=== PATIENT | male | born 1935 | race Caucasian/White ===

== ENCOUNTER 2016-12-30 05:29 | Inpatient (IN) ==
--- NOTE | 2016-12-27 14:51 | XRay Report ---
XR chest 2V Date: 12/27/2016 1:58 PM History: Respiratory preoperative evaluation Comparison: 11/11/2015 Technique: PA and lateral chest Findings: The heart is normal in size with prior median sternotomy. Arterial calcifications with coronary artery stents. The lungs appear more over expanded with chronic scarring. Calcified granulomata/nodes. Degenerative changes are noted with bridging anterior osteophytes. Prior cholecystectomy. Impression: COPD with chronic scarring in patient with prior median sternotomy. Evidence of old healed granulomatous disease. Diffuse arterial calcifications with coronary artery stents. DISH. PROCEDURE INTERPRETED AT [facility]PARTMENT OF RAD[facility]OLOG[facility] Final Report Signed by: Dr. Alison Lewis
[2016-12-30] MEDS ORDERED: ERTAPENEM 1,000 MG in SODIUM CHLORIDE 0.9% 100 ML IV ONE (06:00)
[2016-12-30] MEDS ORDERED: ALVIMOPAN 12 MG CAPSULE PO ONE (06:00)
[2016-12-30] MEDS ORDERED: SODIUM CHLORIDE 0.9% 100 ML IV ONE (06:01)
[2016-12-30] MEDS ORDERED: ERTAPENEM 1,000 MG VIAL ONE (06:01)
[2016-12-30] MEDS ORDERED: ALVIMOPAN 12 MG CAPSULE ONE (06:02)
--- NOTE | 2016-12-30 06:45 | History and Physical Update ---
History and Physical Update - History and Physical H&P was reviewed, the patient examined and there: are no changes in the patients condition since last H&P was completed. - Dictation Physical: refer to scanned H&P
[2016-12-30] MEDS: LACTATED RINGERS 1,000 ML IV SCH ×3 (06:55→12:11)
[2016-12-30] MEDS ORDERED: TISSUE ADHESIVE 1 EACH APPLICATOR TOP ONE (09:58)
--- NOTE | 2016-12-30 10:38 | Anesthesia Post-Op ---
Anesthesia Post OP - Post Ansesthetic Evaluation Patient seen in post op: Yes Resp: within normal limits CV: within normal limits Mental: within normal limits Temp: within normal limits [id number]: within normal limits Nausea and Vomiting: within normal limits Pain: within normal limits
[2016-12-30] MEDS ORDERED: ONDANSETRON 4 MG/2 ML VIAL IV PRN ×2 (10:39→10:44)
[2016-12-30] MEDS ORDERED: PROMETHAZINE 25 MG/1 ML VIAL IM PRN (10:39)
[2016-12-30] MEDS ORDERED: HYDROmorphone 2 MG/1 ML VIAL IV PRN ×2 (10:39→10:44)
[2016-12-30] MEDS ORDERED: ALBUTEROL/IPRATROPIUM 3 ML NEB RESP TX PRN (10:39)
[2016-12-30] MEDS ORDERED: ACETAMINOPHEN 325 MG TABLET PO PRN (10:39)
[2016-12-30] MEDS ORDERED: PROPOFOL 200 MG/20 ML VIAL IV ONE (10:40)
[2016-12-30] MEDS ORDERED: MIDAZOLAM 2 MG/2 ML VIAL ONE (10:40)
[2016-12-30] MEDS ORDERED: DESFLURANE 1 UNIT/15 MINUTE INH ONE (10:40)
[2016-12-30] MEDS ORDERED: NEOSTIGMINE 10 MG/10 ML VIAL ONE (10:41)
[2016-12-30] MEDS ORDERED: ROCURONIUM 100 MG/10 ML VIAL IV ONE (10:41)
[2016-12-30] MEDS ORDERED: ACETAMINOPHEN 1,000 MG/100 ML VIAL IV ONE (10:41)
[2016-12-30] MEDS ORDERED: LACTATED RINGERS 1,000 ML IV ONE (10:41)
[2016-12-30] MEDS ORDERED: fentaNYL 100 MCG/2 ML VIAL ONE (10:41)
[2016-12-30] MEDS ORDERED: ONDANSETRON 4 MG/2 ML VIAL ONE ×2 (10:41→11:02)
[2016-12-30] MEDS ORDERED: NITROGLYCERIN SL 0.4 MG TABLET SL PRN (10:43)
[2016-12-30] MEDS ORDERED: ALLOPURINOL 100 MG TABLET PO PRN (10:43)
[2016-12-30] MEDS ORDERED: DEXTROSE 50% 25 GM/50 ML SYRINGE IV PRN (10:44)
[2016-12-30] MEDS ORDERED: GLUCAGON 1 MG VIAL IM PRN (10:44)
[2016-12-30] MEDS ORDERED: HYDROmorphone 2 MG/1 ML VIAL ONE (11:02)
[2016-12-30] MEDS: PANTOPRAZOLE 40 MG VIAL IV SCH (12:10)
[2016-12-30] MEDS: KETOROLAC 15 MG/1 ML VIAL IV SCH ×2 (12:10→17:15)
[2016-12-30] MEDS: ASPIRIN EC 81 MG TABLET PO SCH (12:11)
[2016-12-30] MEDS: DUTASTERIDE 0.5 MG CAPSULE PO SCH (12:11)
[2016-12-30] MEDS: amLODIPine 5 MG TABLET PO SCH (12:12)
[2016-12-30] MEDS: METOPROLOL TARTRATE 50 MG TABLET PO SCH (12:12)
[2016-12-30] MEDS: INDAPAMIDE 2.5 MG TABLET PO SCH (12:12)
[2016-12-30] MEDS: ALVIMOPAN 12 MG CAPSULE PO SCH ×2 (12:27→21:24)
--- NOTE | 2016-12-30 13:17 | Operative Note ---
Date of procedure: 12/30/16 Pre-op diagnosis: Right colon cancer Post-op diagnosis: same Procedure: Preoperative diagnosis Ascending colon cancer Postoperative diagnosis Same Procedures performed 1. Robotic assisted extensive laparoscopic lysis of adhesions 2. Robotic assisted laparoscopic right colectomy Complications None apparent Specimen Right colon Findings There were extensive intra-abdominal adhesions to the patient's prior midline incision. I spent approximately an hour and 15 minutes taking these down to expose the area of interest and restore normal anatomy for the planned right colectomy. There was a serosal cautery injury to a small piece of jejunum and this was oversewn with 3-0 silk Lembert sutures. There was no evidence of metastatic disease to the liver. Blood loss 10 mL Anesthesia GETA Indications Ascending colon cancer Description of procedure The patient was taken to the operating room and transferred to the operating table in supine position. Pressure points were padded and SCDs were placed lower extremities. General endotracheal anesthesia was administered. A Quach catheter was placed with clear urine output. The patient was prepped and draped with chlorhexidine. Preoperative antibiotics were administered and a timeout was performed. The abdomen was entered in a supraumbilical paramedian location on the left side of the abdominal wall with a Veress needle. An 8 mm skin incision was made with an 11 blade scalpel and penetrating towel clips were used to grasp the abdominal wall skin Veress needle was used to enter the peritoneal cavity confirmed by double click technique. Aspiration was negative. Saline drop test confirmed intraperitoneal location. The Veress needle was used to insufflate the abdominal cavity to 15 mmHg with an initial pressure of 2 mmHg. The Veress needle was removed and a robotic 8 mm trocar was placed blindly. Laparoscope was inserted. There is no evidence of Veress needle or trocar injury. Diagnostic laparoscopy was performed. There were a lot of adhesions to the midline which mostly contained omentum but also transverse colon and some small bowel. These extended the entire length of the prior midline incision and also off into the left upper quadrant some. The 12 mm left upper quadrant abdominal trochars placed under direct visualization after local anesthetic was administered and the 5 mm kennel assistant trocar was placed in the left lower quadrant. The 8 mm left lower quadrant trocar was then placed. A laparoscopic lysis of adhesions was performed which took about an hour and 15 minutes and fairly extensive adhesio lysis was required. This was necessary to adequately see the area of dissection and also to restore the normal anatomy to allow removal of the patient's colon cancer in the right colon. A superficial cautery injury occurred on the jejunum and this was oversewn with 3-0 silk Lembert sutures. The robot was docked. The cecum was retracted and the ileocolic pedicle was identified and divided with a vascular stapler. Medial to lateral dissection was performed with visualization of the duodenum and the dissection was then carried up towards the transverse colon. The colon was transected after the omentum was taken off the colon with electrocautery using a JENNIFER stapler. The lateral attachments of the colon were then divided down to the pelvis. The terminal ileum was transected also with a JENNIFER stapler. An intracorporeal anastomosis was completed by making an enterotomy and colotomy in the GI stapler was used to staple the anastomosis side to side. The enterotomy was closed with the JENNIFER stapler. The mesentery was inspected and was not twisted. The mesenteric defect was left open. The robot was undocked. The specimen was extracted through a left upper quadrant incision extended from the 12 mm trocar site through an Angel retractor. The fascial incision was closed with a 0 non-looped PDS suture in 2 layers. The skin incisions were closed with 4-0 monocryl sutures. The patient's Quach was removed and she was awakened from anesthesia and transferred to recovery. Postoperative plan Advance diet as tolerated Pain control Anesthesia: MIKAELAA Surgeon / Physician: Zachery Juárez Estimated blood loss: minimal Specimens: other (right colon) Condition: stable Disposition: PACU Discharge Plan - Discharge Medications No Action Omeprazole 20 mg PO BIDAC Metoprolol Tartrate 50 mg PO DAILY Indapamide 2.5 mg PO DAILY glipiZIDE [Glipizide] 10 mg PO TID Dutasteride [Avodart] 0.5 mg PO DAILY Atorvastatin [Lipitor] 40 mg PO BEDTIME amLODIPine [Norvasc] 5 mg PO DAILY Aspirin [Ecotrin] 81 mg PO DAILY Pioglitazone HCl [Actos] 30 mg PO DAILY Cyanocobalamin Inj [Vitamin B12 Inj] 1,000 mcg SUBCUT Q30D Acetaminophen Tab [Tylenol Tab] 650 mg PO Q6H PRN #0 tablet PRN Reason: Fever > 100.4 Or Headache Allopurinol 100 mg PO DIRECTED PRN PRN Reason: Gout - Follow Up or Referral - Forms/Instructions
--- NOTE | 2016-12-30 15:53 | Event Note ---
General Surgery Progress Note Chief complaint This patient is a 81-year-old man admitted following robotic assisted laparoscopic extensive lysis of adhesions with right colectomy for right colon cancer on 12/30/2016 Interval history The patient is doing well postoperatively. His pain is well controlled. No nausea or vomiting. Vital signs are normal. Physical exam Afebrile with normal vital signs Chest is clear Heart is regular Abdomen soft and appropriately tender Extremities with no edema Labs None new Imaging None new Assessment and plan The patient is comfortable postoperatively. We will continue Entereg and await return of bowel function with diet as tolerated Incentive spirometry DVT chemoprophylaxis with Lovenox [place], Dilaudid, and Toradol for pain Ambulate in [place]
[2016-12-30] MEDS: INSULIN LISPRO 100 UNIT/ML SUBCUT SCH (17:16)
[2016-12-30] MEDS: ATORVASTATIN 40 MG TABLET PO SCH (21:25)
[2016-12-31] MEDS: KETOROLAC 15 MG/1 ML VIAL IV SCH ×4 (02:36→17:30)
[2016-12-31] MEDS: LACTATED RINGERS 1,000 ML IV SCH ×4 (02:37→16:43)
[2016-12-31 05:31] LABS: Basophils % 0.1 % (0.0-0.8); Hematocrit 29.9 VOL% (42.0-52.0); Immature Granulocytes % 1.1 %; Lymphocytes # 0.4 10*3/uL (1.4-4.0); Lymphocytes % 3.8 % (21.2-54.2); Mean Corpuscular HGB Conc 33.4 GM/DL (32-36); Mean Corpuscular Hemoglobin 28 PG (27-34); Mean Corpuscular Volume 84.2 FL (87-102); Mean Platelet Volume 11.5 FL (9.6-12.0); Monocytes # 0.5 10*3/uL (0.11-0.8); Monocytes % 5.3 % (1.7-12.7); Neutrophils # 8.5 10*3/uL (1.4-7.4); Neutrophils % 89.7 % (38.7-73.9); Red Blood Count 3.55 MC/CUMM (3.8-5.5); Red Cell Distribution Width 14.4 % (9.3-17.3); White Blood Count 9.5 T/CUMM (4-12)
[2016-12-31 05:56] LABS: Platelet Count 84 T/CUMM (130-400)
[2016-12-31 06:06] LABS: Calcium 8.5 MG/DL (8.5-10.1); Osmolality,Calculated 288.1 MOS/KG (273-304); Potassium 3.7 MMOL/L (3.5-5.1)
[2016-12-31 07:14] LABS: Band Neutrophils 19 % (0-10); Hypochromasia Slight; Platelet Estimate Decreased; Segmented Neutrophils 81 % (50-85); Target Cells Slight; Total Cells Counted 100
[2016-12-31] MEDS ORDERED: LACTATED RINGERS 1,000 ML IV ONE (07:14)
[2016-12-31 07:42] LABS: Apearance,Urine CLOUDY (Clear); Bilirubin,Urine Negative (Negative); Blood, Urine Large mg/dL (Negative); Glucose,Urine (UA) Negative (Negative); Hyaline Casts,Urine 17 /LPF (0-3); Ketones,Urine Negative (Negative); Mucus,Urine Many /LPF (Occasional); Nitrite,Urine Negative (Negative); Protein,Urine 100 MG/DL; RBC,Urine 1367 /HPF (0-4); Urine Color Amber (Yellow); Urine Specific Gravity 1.023 (1.001-1.035); Urine Urobilinogen < 2.0 EU/DL (0.2-1.0); WBC,Urine 49 /HPF (0-6)
[2016-12-31] MEDS: ALVIMOPAN 12 MG CAPSULE PO SCH ×2 (09:24→20:44)
[2016-12-31] MEDS: PANTOPRAZOLE 40 MG VIAL IV SCH (09:24)
[2016-12-31] MEDS: DUTASTERIDE 0.5 MG CAPSULE PO SCH (09:25)
[2016-12-31] MEDS: METOPROLOL TARTRATE 50 MG TABLET PO SCH (09:25)
[2016-12-31] MEDS: INDAPAMIDE 2.5 MG TABLET PO SCH (09:25)
[2016-12-31] MEDS: ASPIRIN EC 81 MG TABLET PO SCH (09:25)
[2016-12-31] MEDS: amLODIPine 5 MG TABLET PO SCH (09:25)
[2016-12-31] MEDS: INSULIN LISPRO 100 UNIT/ML SUBCUT SCH ×2 (09:58→17:10)
--- NOTE | 2016-12-31 11:33 | Event Note ---
General Surgery Progress Note Chief complaint This patient is a 81-year-old man admitted following robotic assisted laparoscopic extensive lysis of adhesions with right colectomy for right colon cancer on 12/30/2016 Interval history The patient is doing well overall and his pain is well controlled. He did develop some hematuria overnight as possible urinary tract infection on his UA. His heart rate is normalized and he is receiving IV fluid bolus now for decreased urine output and elevated creatinine. His hemoglobin is 1012 preop. He does have some thrombocytopenia at 80,000 Physical exam Afebrile with normal vital signs Chest is clear Heart is regular Abdomen soft and appropriately tender, the incisions are clean, dry, and intact Extremities with no edema Labs Reviewed, as above Imaging None new Assessment and plan We will add the IV fluid bolus this morning Continue to monitor urine hematuria and follow-up urinalysis urine cultures. The patient likely had irritation of his prostate on Quach catheter placement. We will monitor this over the next day or 2 and see if it clears up on its own. Repeat labs tomorrow Hold off on DVT chemoprophylaxis due to hematuria and low platelet count. Continue SCDs and incentive spirometry and ambulation in the minor
--- NOTE | 2016-12-31 16:26 | Urology Consultation ---
Assessment and Plan - Time spent with patient Time spent with patient: Greater than 30 minutes (1) Hematuria Status: Acute Assessment and plan: He is clearing I recommend observation I will decrease his IV fluids. He did have an elevated residual but he seems to be voiding well and comfortable I think this will improve with time he is to continue his Avodart. I think he probably go home tomorrow. Current Visit: Yes Qualifiers: Qualified Code(s): R31.0 - Gross hematuria History of Present Illness - Data of Consult Patient: known to practice within the last 3 years Consult date: 12/31/16 Requesting Physician: Zachery Juárez - Consult Narrative Reason for consult: Hematuria History of present illness: Mr. Feldman is a 81 year old male who is well known to me. Had a renal cell that we cryoablated years ago. He does have BPH she is on Avodart. He has had hematuria in the past. He is now status post colectomy for colon cancer is had hematuria. His urine is clearing. He is on a baby aspirin and has Toradol. But in seeing him now his urine is fairly clear. They did an ultrasound of the bladder shows 300 cc. I think this is all situational I think this should clear up. I think he could probably go home tomorrow we will watch him tonight he is to continue his Avodart. I do think we need to decrease his IV fluids and will change that 75 cc an hour. CC: Zachery Juárez MD - Home Medications and Allergies Home Medications: Home Medications Medication Instructions Recorded Confirmed Type Aspirin [Ecotrin] 81 mg PO DAILY 11/19/14 12/30/16 History Atorvastatin [Lipitor] 40 mg PO BEDTIME 11/19/14 12/30/16 History Cyanocobalamin Inj [Vitamin B12 1,000 mcg SUBCUT Q30D 11/19/14 12/30/16 History Inj] Dutasteride [Avodart] 0.5 mg PO DAILY 11/19/14 12/30/16 History Indapamide 2.5 mg PO DAILY 11/19/14 12/30/16 History Metoprolol Tartrate 50 mg PO DAILY 11/19/14 12/30/16 History Omeprazole 20 mg PO BIDAC 11/19/14 12/30/16 History Pioglitazone HCl [Actos] 30 mg PO DAILY 11/19/14 12/30/16 History amLODIPine [Norvasc] 5 mg PO DAILY 11/19/14 12/30/16 History glipiZIDE [Glipizide] 10 mg PO TID 11/19/14 12/30/16 History Acetaminophen Tab [Tylenol Tab] 650 mg PO Q6H PRN #0 tablet 11/14/15 12/30/16 Rx Allopurinol 100 mg PO DIRECTED PRN 11/17/16 12/30/16 History Allergies/Adverse Reactions: Allergies Allergy/AdvReac Type Severity Reaction Status Date / Time Iodinated Contrast Media - Allergy Intermediate ITCHING Verified 12/30/16 06:23 Oral and - Genitourinary Genitourinary: Absent: difficulty urinating, dysuria, flank pain, nocturia, scrotal swelling, testicular mass, testicular pain, urinary frequency, urinary incontinence Exam - Constitutional Vitals: Period Temp Pulse Resp BP Sys/Bonner Pulse Ox Last 24 Hr 98.0 F-98.8 F 91-106 18-26 110-117/58-61 91-96 Results - Labs CBC & BMP: 12/31/16 05:11 12/31/16 05:11
[2016-12-31] MEDS: ATORVASTATIN 40 MG TABLET PO SCH (20:44)
[2017-01-01] MEDS: KETOROLAC 15 MG/1 ML VIAL IV SCH ×3 (00:25→12:29)
[2017-01-01 03:33] LABS: Basophils % 0.2 % (0.0-0.8); Eosinophils # 0.1 10*3/uL (0.0-0.87); Eosinophils % 1.1 % (0.00-10.9); Hematocrit 26.9 VOL% (42.0-52.0); Hemoglobin 8.9 GM/DL (14.0-18.0); Immature Granulocytes % 0.8 %; Immature Granulocytes Absolute 0.05 #; Lymphocytes # 0.5 10*3/uL (1.4-4.0); Lymphocytes % 8.3 % (21.2-54.2); Mean Corpuscular HGB Conc 33.1 GM/DL (32-36); Mean Corpuscular Hemoglobin 28 PG (27-34); Mean Corpuscular Volume 85.9 FL (87-102); Mean Platelet Volume 12.1 FL (9.6-12.0); Monocytes # 0.4 10*3/uL (0.11-0.8); Monocytes % 5.4 % (1.7-12.7); Neutrophils # 5.5 10*3/uL (1.4-7.4); Neutrophils % 84.2 % (38.7-73.9); Platelet Count 73 T/CUMM (130-400); Red Blood Count 3.13 MC/CUMM (3.8-5.5); Red Cell Distribution Width 14.9 % (9.3-17.3); White Blood Count 6.5 T/CUMM (4-12)
[2017-01-01 03:47] LABS: Magnesium 1.9 MG/DL (1.8-2.4); Osmolality,Calculated 283.5 MOS/KG (273-304); Potassium 3.3 MMOL/L (3.5-5.1)
[2017-01-01 04:57] LABS: Anisocytosis Slight; Band Neutrophils 5 % (0-10); Eosinophils 1 % (0-10); Lymphocytes 11 % (20-55); Macrocytosis Slight; Platelet Estimate Decreased; Segmented Neutrophils 79 % (50-85); Total Cells Counted 100
[2017-01-01 04:58] LABS: Polychromasia 2+
[2017-01-01] MEDS: LACTATED RINGERS 1,000 ML IV SCH (05:23)
[2017-01-01] MEDS: PANTOPRAZOLE 40 MG VIAL IV SCH (09:37)
[2017-01-01] MEDS: ASPIRIN EC 81 MG TABLET PO SCH (09:38)
[2017-01-01] MEDS: DUTASTERIDE 0.5 MG CAPSULE PO SCH (09:38)
[2017-01-01] MEDS: amLODIPine 5 MG TABLET PO SCH (09:38)
[2017-01-01] MEDS: INDAPAMIDE 2.5 MG TABLET PO SCH (09:38)
[2017-01-01] MEDS: INSULIN LISPRO 100 UNIT/ML SUBCUT SCH (09:39)
[2017-01-01] MEDS: METOPROLOL TARTRATE 50 MG TABLET PO SCH (09:50)
[2017-01-01] MEDS: ALVIMOPAN 12 MG CAPSULE PO SCH (09:50)
--- NOTE | 2017-01-01 11:34 | Event Note ---
01/01/2017 Patient seems to be afebrile with a little warm from what I can tell. He states he has had some bowel movements his abdomen is mildly distended there is a fullness in the left side of the abdomen at this time that I cannot tell much about. He seems to tolerate his diet and Dr. Conley is clear to inform his urine standpoint. A little bit concerned because he does feel warm and hot would like to keep him another day before let him go home.
--- NOTE | 2017-01-01 11:53 | Urology Progress Note ---
Assessment and Plan (1) Hematuria Status: Acute Assessment and plan: He is clearing I recommend observation I will decrease his IV fluids. He did have an elevated residual but he seems to be voiding well and comfortable I think this will improve with time he is to continue his Avodart. I think he probably go home tomorrow. Current Visit: Yes Qualifiers: Qualified Code(s): R31.0 - Gross hematuria Urology - PN: Subj Interval history: Mr. Feldman is voiding better. His urine has cleared up. We have continue the Avodart which is a home medicine. As far as I am concerned he can go home. He has an appointment see me on 19 January we will see him then. Signing off. Exam - Constitutional Vitals: Period Temp Pulse Resp BP Sys/Bonner Pulse Ox Last 24 Hr 97.5 F-98.8 F 70-91 18-26 110-155/60-84 88-98 Results - Labs CBC & BMP: 01/01/17 02:46 01/01/17 02:46
[2017-01-01 12:40] VITALS: BP 139/65
--- NOTE | 2017-01-01 13:50 | Discharge Summary ---
Hospital Course - Hospital Course Hospital Course: This patient was admitted following robotic assisted laparoscopic lysis of adhesions with right colectomy for colon cancer. He developed hematuria and urinary retention postop and he was seen by his urologist who recommended observation and tincture of time and the patient did improve with this. He was cleared for discharge home by his urologist and he stabilized in the hospital. His hemoglobin drifted down to 9 g/dL but he was not tachycardic and had normal blood pressure. There was no evidence of bleeding. He was discharged home with follow-up with me a week from this coming Tuesday. He was tolerating a diet but no abdominal pain and was having bowel movements prior to discharge. Discharge Plan - Discharge Data Disposition: Disch To Home/Self Care Condition at Discharge: Stable Discharge Diet: advance to your usual diet Activity: no lifting Hygiene: may shower Weight Bearing at Discharge: weight bear as tolerated Driving: other (Do not drive or operate heavy machinery for at least 24 hours and after you are off of narcotic pain medications.) Contact your physician if you experience:: fever over 101, Difficulty voiding, Redness or swelling, Nausea/Vomiting, Shortness of breath, Bleeding, pain uncontrolled by pain medications Wound / Dressing Care Instructions: It is okay to shower. Do not scrub the incision aggressively or submerge it under water. - Discharge Medications New HYDROcodone/ACETAMIN 7.5-325 [[place] 7.5-325] 1 tablet PO Q4H PRN #30 tablet PRN Reason: Pain Moderate (4-7) Continue Omeprazole 20 mg PO BIDAC Metoprolol Tartrate 50 mg PO DAILY Indapamide 2.5 mg PO DAILY glipiZIDE [Glipizide] 10 mg PO TID Dutasteride [Avodart] 0.5 mg PO DAILY Atorvastatin [Lipitor] 40 mg PO BEDTIME amLODIPine [Norvasc] 5 mg PO DAILY Aspirin [Ecotrin] 81 mg PO DAILY Pioglitazone HCl [Actos] 30 mg PO DAILY Cyanocobalamin Inj [Vitamin B12 Inj] 1,000 mcg SUBCUT Q30D Allopurinol 100 mg PO DIRECTED PRN PRN Reason: Gout Discontinued Acetaminophen Tab [Tylenol Tab] 650 mg PO Q6H PRN #0 tablet PRN Reason: Fever > 100.4 Or Headache - Follow Up or Referral Follow Up: Zachery Juárez MD [Physician] - 01/10/17 - Forms/Instructions Exam - Constitutional Vitals: Period Temp Pulse Resp BP Sys/Bonner Pulse Ox Last 24 Hr 97.5 F-98.3 F 70-92 18-22 112-155/60-84 88-98 General appearance: no acute distress, over weight - Head Head exam: Present: normal inspection, normocephalic - Eye Eye exam: Present: EOMI. Absent: conjunctival injection Pupils: Present: SHEFALI, normal accommodation - ENT ENT exam: Present: normal exam - Neck Neck exam: Present: normal inspection - Respiratory Respiratory exam: Present: clear to auscultation bilaterally. Absent: accessory muscle use, chest wall tenderness - Cardiovascular Cardiovascular exam: Present: regular rate and rhythm. Absent: systolic murmur , tachycardia - GI/Abdominal GI/Abdominal exam: Present: normal bowel sounds, tenderness (Expected postoperative tenderness), soft, other (There is some bruising of the abdominal incisions with a small hematoma at the periumbilical trocar but no overlying skin erythema or warmth. There is no deep tenderness on exam. Bowel sounds are normal.). Absent: rebound - Extremities Exam Extremities exam: Present: normal inspection, normal capillary refill - Back Exam Back exam: Present: normal inspection - Neurological Exam Neurological exam: Present: alert, oriented X3 - Psychiatric Psychiatric exam: Present: normal affect, normal mood - Skin Skin exam: Present: normal color, warm Discharge Results Procedures and tests throughout hospitalization: Pending Orders 12/31/16 Urine Culture Routine 01/02/17 04:00 Basic Metabolic Panel w/Mg IN AM Comp Blood Count Auto Diff IN AM Labs on day of discharge: Labs from last 24 hours 01/01/17 01/01/17 01/01/17 11:19 08:06 02:46 WBC RBC Hgb Hct MCV MCH MCHC RDW Plt Count MPV Neut % (Auto) Lymph % (Auto) [place] % (Auto) Eos % (Auto) Baso % (Auto) Neut # (Auto) Lymph # (Auto) [place] # (Auto) Eos # (Auto) Baso # (Auto) Total Counted Immature Gran % Nucleated RBC % Immature Gran # Segmented Neutrophils Band Neutrophils Lymphocytes Monocytes Eosinophils Nucleated RBCs # Platelet Estimate Immature Plt Fraction Polychromasia Anisocytosis Macrocytosis Sodium 139 Potassium 3.3 L Chloride 105 Carbon Dioxide 28 Anion Gap 9.3 BUN 36 H Creatinine 1.40 H GFR Calculation 58 BUN/Creatinine Ratio 25.00 H Glucose 74 POC Glucose 105 82 Calculated Osmolality 283.5 Calcium 8.0 L Magnesium 1.9 01/01/17 12/31/16 12/31/16 02:46 19:32 15:28 WBC 6.5 D RBC 3.13 L Hgb 8.9 L Hct 26.9 L MCV 85.9 L MCH 28 MCHC 33.1 RDW 14.9 Plt Count 73 L MPV 12.1 H Neut % (Auto) 84.2 H Lymph % (Auto) 8.3 L Republic % (Auto) 5.4 Eos % (Auto) 1.1 Baso % (Auto) 0.2 Neut # (Auto) 5.5 Lymph # (Auto) 0.5 L [place] # (Auto) 0.4 Eos # (Auto) 0.1 Baso # (Auto) 0.0 Total Counted 100 Immature Gran % 0.8 Nucleated RBC % 0.0 Immature Gran # 0.05 Segmented Neutrophils 79 Band Neutrophils 5 Lymphocytes 11 L Monocytes 4 Eosinophils 1 Nucleated RBCs # 0.00 Platelet Estimate Decreased Immature Plt Fraction 4.3 Polychromasia 2+ Anisocytosis Slight Macrocytosis Slight Sodium Potassium Chloride Carbon Dioxide Anion Gap BUN Creatinine GFR Calculation BUN/Creatinine Ratio Glucose POC Glucose 85 89 Calculated Osmolality Calcium Magnesium 12/31/16 13:53 WBC RBC Hgb Hct MCV MCH MCHC RDW Plt Count MPV Neut % (Auto) Lymph % (Auto) Republic % (Auto) Eos % (Auto) Baso % (Auto) Neut # (Auto) Lymph # (Auto) [place] # (Auto) Eos # (Auto) Baso # (Auto) Total Counted Immature Gran % Nucleated RBC % Immature Gran # Segmented Neutrophils Band Neutrophils Lymphocytes Monocytes Eosinophils Nucleated RBCs # Platelet Estimate Immature Plt Fraction Polychromasia Anisocytosis Macrocytosis Sodium Potassium Chloride Carbon Dioxide Anion Gap BUN Creatinine GFR Calculation BUN/Creatinine Ratio Glucose POC Glucose 150 H Calculated Osmolality Calcium Magnesium Preliminary micro results at discharge 12/31/16 Unknown Urine Culture - Preliminary Urine,Clean Catch No Growth at 24 hours. DS: Provider Date of admission: 12/30/16 10:39 Primary care physician: Gerson Fuller DO Attending physician on admission: Zachery Juárez MD Consults: 12/31/16 14:05 Consult to Physician [CONS] Routine Comment: hematuria, urinary retention Consulting Provider: Vinicio Conley Person Notified: Dr. Conley Date Notified: 12/31/16 Time Notified: 14:17 Consult Notification Comment: Dr. Juárez spoke to Dr. Conley on rounds. Dr. Conley aware Discharging clinician: Zachery Juárez MD Expected date of discharge: 01/01/17
[2017-01-01 14:10] LABS: Hematocrit 28.9 VOL% (42.0-52.0); Hemoglobin 9.7 GM/DL (14.0-18.0)
[2017-01-01] MEDS ORDERED: POTASSIUM CHLORIDE 20 MEQ TABLET PO ONE (14:45)
--- NOTE | 2017-01-03 13:25 | Pathology Report from [facility] ---
[facility] [place] ACCESSION # : [id number] PATIENT NAME : Lenora Dai ORDERING DR : Zachery Juárez MD CLINICAL HX: Colon cancer POST-OP DX: Same SPECIMEN INFO: Right colon GROSS DESCRIPTION: The specimen is received in formalin labeled with the patients name LENORA DAI and consists of a segment of colon to include the cecum measuring 49.0 cm in length and measuring from 2.0 cm to 7.0 cm in diameter. The terminal ileum measures 10.0 x 1.7 cm. The appendix measures 7.0 x 0.7 cm. The serosa has an irregular mendosa-pink color. The bile wall displays areas of thinning. A ulcerated tumor mass measuring 3.2 x 1.7 cm is noted 18.0 cm from the proximal margin and 34.0 cm from the distal margin. Grossly the tumor extends beyond the bowel to the adjacent mesentery, and comes to within 6.0 cm from the mesenteric margin. A sessile polyp measuring 1.4 x 0.8 cm is noted 3.5 cm proximal to the mass. Sections submitted: A proximal margin, B distal margin, C mesenteric margin, D thru F mass, G smaller polyp, H appendix, I development representative thin bowel wall, and J-K lymph nodes. DIAGNOSIS FOR LENORA DAI: #1 RIGHT COLON, PARTIAL ILEOCOLECTOMY (Intact, 59.0 x 7.0 cm): TYPE: Invasive adenocarcinoma. TUMOR SITE: Ascending colon. TUMOR SIZE: 3.2 x 1.7 cm. MACROSCOPIC TUMOR PERFORATION: Present. HISTOLOGIC GRADE: Moderately differentiated. TUMOR EXTENSION: Invades lamina propria through the muscularic propria into the pericolic fat without serosal involvement. MARGINS, PROXIMAL: Uninvolved by carcinoma, distance = 18 cm. DISTAL: Uninvolved by carcinoma, distance = 34 cm. MESENTERIC: Uninvolved by carcinoma, distance = 6 cm. TREATMENT EFFECT : No prior treatment. LYMPHOVASCULAR INVASION: Not identified. PERINEURAL INVASION: Not identified. TUMOR DEPOSITS: Not identified. TUMOR BUDDING: Number of tumor buds in 1 hotspot field = Low score (0-4). LYMPH NODES: NUMBER EXAMINED: 22; NUMBER INVOLVED: 1 (06/13). 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 COLLECTED DATE: 12/30/2016 [facility] [place] REPORT DATE: 01/03/2017 ELECTRONICALLY SIGNED BY: Kadeem Ryan M.D. 01/03/2017 - 9:34:55 MTDD
== END 2017-01-01 14:58 | disposition home or self-care (01) | DRG 330 ==
LOC: N.OR 05:29 → N.SDSINP 05:29 → N.2E 10:39
PROVIDERS: ADMIT Surgery; ATTEND Surgery

== ENCOUNTER 2019-07-03 14:43 | Observation (INO) ==
[2019-07-03] MEDS ORDERED: DEXTROSE 10% 250 ML BAG IV PRN (15:09)
[2019-07-03] MEDS ORDERED: ONDANSETRON 4 MG/2 ML VIAL IV PRN (15:09)
[2019-07-03] MEDS ORDERED: ACETAMINOPHEN 325 MG TABLET PO PRN (15:09)
[2019-07-03] MEDS ORDERED: GLUCAGON 1 MG VIAL IM PRN (15:09)
[2019-07-03] MEDS: INSULIN REGULAR 100 UNIT/ML SUBCUT SCH ×2 (18:09→21:10)
[2019-07-03] MEDS: methylPREDNISolone SOD SUC 40 MG/1 ML VIAL IV SCH (18:10)
[2019-07-03] MEDS: SODIUM CHLORIDE 0.9% 1,000 ML IV SCH (18:10)
[2019-07-03] MEDS ORDERED: ENOXAPARIN 30 MG/0.3 ML SYRINGE SUBCUT SCH (21:00)
[2019-07-03] MEDS: KETOROLAC 30 MG/1 ML VIAL IV SCH (21:10)
[2019-07-03] MEDS: DOCUSATE SODIUM 100 MG CAPSULE PO SCH (21:40)
[2019-07-03] MEDS: ATORVASTATIN 40 MG TABLET PO SCH (21:40)
[2019-07-04] MEDS: methylPREDNISolone SOD SUC 40 MG/1 ML VIAL IV SCH ×3 (00:24→16:37)
[2019-07-04 05:04] LABS: Basophils % 0.2 % (0.0-0.8); Hematocrit 34.9 VOL% (42.0-52.0); Hemoglobin 11.8 GM/DL (14.0-18.0); Immature Granulocytes % 0.5 %; Immature Granulocytes Absolute 0.03 #; Lymphocytes # 0.4 10*3/uL (1.4-4.0); Lymphocytes % 7.2 % (21.2-54.2); Mean Corpuscular HGB Conc 33.8 GM/DL (32-36); Mean Corpuscular Volume 84.5 FL (87-102); Mean Platelet Volume 11.1 FL (9.6-12.0); Monocytes % 3.4 % (1.7-12.7); Neutrophils % 88.7 % (38.7-73.9); Platelet Count 151 T/CUMM (130-400); Red Blood Count 4.13 MC/CUMM (3.8-5.5); Red Cell Distribution Width 13.2 % (9.3-17.3); White Blood Count 6.1 T/CUMM (4-12)
[2019-07-04 05:26] LABS: Calcium 8.9 MG/DL (8.5-10.1); Osmolality,Calculated 273.8 MOS/KG (273-304)
[2019-07-04] MEDS: DOCUSATE SODIUM 100 MG CAPSULE PO SCH ×2 (08:36→21:28)
[2019-07-04] MEDS: glipiZIDE 10 MG TABLET PO SCH ×2 (08:36→16:37)
[2019-07-04] MEDS: METOPROLOL TARTRATE 50 MG TABLET PO SCH (08:37)
[2019-07-04] MEDS: ASPIRIN EC 81 MG TABLET PO SCH (08:37)
[2019-07-04] MEDS: amLODIPine 5 MG TABLET PO SCH (08:37)
[2019-07-04] MEDS: PANTOPRAZOLE 40 MG TABLET PO SCH (08:37)
[2019-07-04] MEDS: metFORMIN 500 MG TABLET PO SCH ×2 (08:37→16:37)
[2019-07-04] MEDS: DUTASTERIDE 0.5 MG CAPSULE PO SCH (08:37)
[2019-07-04] MEDS: KETOROLAC 30 MG/1 ML VIAL IV SCH ×2 (08:38→22:25)
[2019-07-04] MEDS: PIOGLITAZONE 15 MG TABLET PO SCH (08:40)
[2019-07-04] MEDS: SODIUM CHLORIDE 0.9% 1,000 ML IV SCH ×2 (08:45→21:35)
[2019-07-04] MEDS ORDERED: PIOGLITAZONE 15 MG TABLET PO SCH (09:00)
[2019-07-04] MEDS ORDERED: POTASSIUM CHLORIDE 20 MEQ TABLET PO ONE (09:00)
[2019-07-04] MEDS: INSULIN REGULAR 100 UNIT/ML SUBCUT SCH ×4 (11:42→21:29)
[2019-07-04] MEDS ORDERED: ENOXAPARIN 40 MG/0.4 ML SYRINGE SUBCUT SCH (21:00)
[2019-07-04] MEDS: ATORVASTATIN 40 MG TABLET PO SCH (21:28)
[2019-07-05] MEDS: methylPREDNISolone SOD SUC 40 MG/1 ML VIAL IV SCH ×2 (01:14→08:21)
[2019-07-05] MEDS: PANTOPRAZOLE 40 MG TABLET PO SCH (08:20)
[2019-07-05] MEDS: DOCUSATE SODIUM 100 MG CAPSULE PO SCH (08:20)
[2019-07-05] MEDS: metFORMIN 500 MG TABLET PO SCH (08:20)
[2019-07-05] MEDS: METOPROLOL TARTRATE 50 MG TABLET PO SCH (08:20)
[2019-07-05] MEDS: ASPIRIN EC 81 MG TABLET PO SCH (08:20)
[2019-07-05] MEDS: amLODIPine 5 MG TABLET PO SCH (08:20)
[2019-07-05] MEDS: glipiZIDE 10 MG TABLET PO SCH (08:20)
[2019-07-05] MEDS: INSULIN REGULAR 100 UNIT/ML SUBCUT SCH (08:20)
[2019-07-05] MEDS: DUTASTERIDE 0.5 MG CAPSULE PO SCH (08:20)
[2019-07-05] MEDS: PIOGLITAZONE 15 MG TABLET PO SCH (08:22)
[2019-07-05] MEDS: KETOROLAC 30 MG/1 ML VIAL IV SCH (08:26)
[2019-07-05 08:47] VITALS: BP 143/67
== END 2019-07-05 10:20 | disposition home health service (06) ==
LOC: N.2E
PROVIDERS: ADMIT Family Medicine; ATTEND Family Medicine